=== PATIENT | female | born 1965 | race Caucasian/White ===

== ENCOUNTER 2021-11-10 21:45 | Emergency (ER) | payer OTHER ==
[2021-11-10 21:52] VITALS: BP 155/88; PULSE 92; TEMP 98.6; BMI 24.1
[2021-11-10] MEDS ORDERED: ACETAMINOPHEN 500 MG TABLET (FP) PO ONE (22:34)
[2021-11-10] MEDS ORDERED: ACETAMINOPHEN 325 MG TABLET (FP) ONE (22:40)
== END 2021-11-11 01:37 | disposition home or self-care (01) ==
LOC: JER 21:45 → JERFT 21:45 → JER 11-11 01:37
DX: S76.012A Strain of muscle, fascia and tendon of left hip, initial encounter (principal); W01.0XXA Fall on same level from slipping, tripping and stumbling without subsequent striking against object, initial encounter
CPT/HCPCS: 72192-TC; 73552-TC-LT-FY; 73562-TC-LT-FY; 99285-25